=== PATIENT | female | born 1960 | race Caucasian/White ===

== ENCOUNTER 2017-01-19 10:04 | Day surgery (SDC) | payer OTHER ==
[2017-01-19] MEDS ORDERED: diphenhydrAMINE 25 MG CAP PO ONE ×2 (10:08→10:35)
[2017-01-19] MEDS ORDERED: ASPIRIN EC 325 MG TAB PO ONE ×2 (10:08→10:36)
[2017-01-19] MEDS ORDERED: FAMOTIDINE 20 MG TAB PO ONE (10:08)
[2017-01-19] MEDS ORDERED: DIAZEPAM 5 MG TAB PO ONE (10:08)
[2017-01-19] MEDS ORDERED: NS 1,000 ML IV ONE (10:08)
--- NOTE | 2017-01-19 10:34 | CPEKG ---
Heart Rate: 73 RR Interval: 822 P-R Interval: 128 QRSD Interval: 96 QT Interval: 400 QTC Interval: 441 P Leland: 67 QRS Leland: 75 T Wave Leland: 15 EKG Severity - NORMAL ECG - EKG Impression: SINUS RHYTHM Electronically Signed By: Zain Fitzpatrick 20-Jan-2017 13:13:09
[2017-01-19] MEDS ORDERED: DIAZEPAM 5 MG TAB ONE (10:36)
[2017-01-19] MEDS ORDERED: FAMOTIDINE 20 MG TAB ONE (10:36)
[2017-01-19 10:49] LABS: % IMMATURE GRANULYOCYTES 0.2 % (0.0-1.1); ABSOLUTE IMMATURE GRANULOCYTES 0.01 10^3/uL (0.00-0.10); ADD DIFF? NO; ADD MORPH? NO; ADD SCAN? NO; ATYPICAL LYMPHOCYTE FLAG 0 (0-99); FRAGMENT RBC FLAG 0 (0-99); HEMATOCRIT 40.4 % (38.0-47.0); HEMOGLOBIN 14.1 g/dL (12.6-16.3); LEFT SHIFT FLG 0 (0-99); LIPEMIA HEMOLYSIS FLAG 90 (0-99); MEAN CELL HEMOGLOBIN 31.1 pg (27.9-34.1); MEAN CELL HEMOGLOBIN CONCENTR. 34.9 g/dL (32.4-36.7); MEAN PLATELET VOLUME 9.6 fL (8.7-11.7); PLATELET CLUMPS FLAG 10 (0-99); PLATELET COUNT 193 10^3/uL (150-400); RED BLOOD CELL COUNT 4.54 10^6/uL (4.18-5.33); RED CELL DISTRIBUTION WIDTH 12.5 % (11.5-15.2)
[2017-01-19 10:58] LABS: INR 1.04 (0.83-1.16); PROTIME(PATIENT) 13.5 SEC (12.0-15.0)
[2017-01-19 11:09] LABS: ANION GAP 11 mEq/L (8-16); CALCIUM 9.5 mg/dL (8.5-10.4); CARBON DIOXIDE 26 mEq/l (22-31); CHLORIDE 106 mEq/L (97-110); CHOLESTEROL 127 mg/dL (140-220); CHOLESTEROL/HDL RATIO 1.87 RATIO (1.00-4.44); CREATININE 0.7 mg/dL (0.6-1.0); GLOMERULAR FILTRATION RATE > 60; GLUCOSE 89 mg/dL (70-100); HIGH DENSITY LIPOPROTEIN 68 mg/dL (40-85); LDL/HDL RATIO 0.65 RATIO (1.00-3.22); LOW DENSITY LIPOPROTEIN 44 mg/dL (80-100); MAGNESIUM 1.8 mg/dL (1.6-2.3); NON-HIGH DENSITY LIPOPROTEIN 59 mg/dL (90-129); POTASSIUM 3.7 mEq/L (3.5-5.2); SODIUM 143 mEq/L (134-144); TRIGLYCERIDE 75 mg/dL (35-135); VERY LOW DENSITY LIPOPROTEINS 15 mg/dL (8-25)
[2017-01-19] MEDS ORDERED: LIDOCAINE 1% 300 MG/30 ML SDV ONE (13:05)
[2017-01-19] MEDS ORDERED: MIDAZOLAM 2 MG/2 ML VIAL ONE (13:05)
[2017-01-19] MEDS ORDERED: fentaNYL 100 MCG/2 ML INJ ONE ×2 (13:05→13:51)
[2017-01-19] MEDS ORDERED: IOPAMIDOL (ISOVUE-370) 150 ML BTL IV ONE (13:05)
--- NOTE | 2017-01-19 13:38 | PDPROPOC ---
Sedation Plan of Care Sedation Plan of Care: vital signs stable, mental status noted, patient educated of risks, benefits, alternatives, patient can tolerate sedation ASA Classification: ASA 2 Planned drugs: fentanyl, midazolam Mallampati Score: Class 2 Mallampati Reference Image: Patient passed 3-3-2 rule?: Yes
--- NOTE | 2017-01-19 13:40 | PDGENHP ---
History & Physical Chief Complaint: DO History of Present Illness: 56 year old female with complaints of means and abnormal exercise nuclear stress test with 1.[address] depression and anterior ischemia. Pertinent Past, Social, Family History: HTN, Hyperlipidemia Relevant Physical Exam: Awake, alert appropriate
[2017-01-19] MEDS ORDERED: HYDROCODONE/APAP 5/325 TAB PO PRN (14:25)
[2017-01-19] MEDS ORDERED: NITROGLYCERIN 0.4 MG BTL SL PRN (14:25)
[2017-01-19] MEDS ORDERED: OXYCODONE/APAP 5/325 TAB PO PRN (14:25)
[2017-01-19] MEDS ORDERED: ONDANSETRON 4 MG/2 ML VIAL IVP PRN (14:25)
[2017-01-19] MEDS ORDERED: ATROPINE SULFATE 1 MG/10 ML SYR IVP PRN (14:25)
--- NOTE | 2017-01-19 19:46 | CPIP ---
[f rep st] INVASIVE CARDIAC PROCEDURE DATE OF PROCEDURE: 01/19/2017 REPORT TITLE: Cardiac catheterization. BODY AFTER REPORT TITLE: PROCEDURE PERFORMED: Diagnostic left heart catheterization. INDICATION FOR PROCEDURE: Symptoms of dyspnea on exertion coupled with high-risk findings on nuclear stress test including symptomatic dyspnea coupled with positive ECG changes and evidence of anterior wall ischemia. PROCEDURE: After informed consent was obtained, patient was taken to the cardiac catheterization lab where she was prepped and draped in sterile fashion. Using 1% lidocaine, the right groin was anesth etized. Using modified Seldinger technique, 6-Cambodian catheter was placed in the right common femoral artery without complications. JL4 catheter initially was used to attempt to cannulate the left main unsuccessfully. This was exchanged over a guidewire for a JL4-5. The JL4 catheter was used to micha ulate left main coronary artery. Images were obtained in multiple projections of the left coronary a natomy. JL4-5 catheter was exchanged over a guidewire for a JR4 catheter. JR4 catheter was used to cannulate the right coronary artery. Images of the right coronary artery were obtained. The JR4 cat heter was exchanged over a guidewire for angled pigtail catheter. Angled pigtail catheter was used t o cross the aortic valve. Left ventriculogram was performed. LVEDP was assessed, and an 8 aortic va lve gradient was assessed on pull-back. FINDINGS: 1. Left main is small and promptly bifurcates into left anterior descending and left circumflex [place] artery. There is no evidence of coronary disease within the left main. 2. Left anterior descending artery wraps around the LV apex. There is no evidence of coronary arter y disease within the left anterior descending artery or its branch vessels. 3. The left circumflex artery is a large dominant-caliber vessel with no evidence of coronary artery disease. Right coronary artery is a small vessel nondominant, that is borderline sub-2 mm vessel. Single shot was obtained of this vessel secondary to onset of hypotension with cannulation of the rig ht coronary artery. There is no evidence of coronary disease in the right coronary artery. HEMODYNAMICS: LVEDP 20/7 mmHg. Aortic valve gradient 5 mmHg. LVEF 60% to 65%. CONCLUSION: 1. Normal coronary arteries. 2. Mildly elevated LVEDP at 27 mmHg. RECOMMENDATIONS: Will focus on adequate blood pressure control and as well as lipids. /[id number]/MODL
== END 2017-01-19 18:16 | disposition home or self-care (01) ==
LOC: FCATH 10:04
PROVIDERS: ATTEND Internal Medicine Cardiovascular Disease
PROC: B2111ZZ Fluoroscopy of Multiple Coronary Arteries using Low Osmolar Contrast (ICD-10-PCS; principal; 2017-01-19)
PROC: 4A023N7 Measurement of Cardiac Sampling and Pressure, Left Heart, Percutaneous Approach (ICD-10-PCS; principal; 2017-01-19)
PROC: B2161ZZ Fluoroscopy of Right and Left Heart using Low Osmolar Contrast (ICD-10-PCS; principal; 2017-01-19)
DX: R94.39 Abnormal result of other cardiovascular function study (principal); R06.09 Other forms of dyspnea; I10 Essential (primary) hypertension; E78.5 Hyperlipidemia, unspecified
CPT/HCPCS: C1760; J1644; J2250; J3010; Q9967

== ENCOUNTER → 2017-10-28 | Outpatient (CLI) | payer OTHER | LOC: BMCIMAGING 12:37 | PROVIDERS: ATTEND Internal Medicine | DX: R06.02 Shortness of breath (principal) ==

== ENCOUNTER → 2018-05-26 | Outpatient (CLI) | payer OTHER | LOC: BMCIMAGING 08:20 | PROVIDERS: ATTEND Nurse Practitioner Adult Health | DX: M25.561 Pain in right knee (principal); M25.562 Pain in left knee; M17.0 Bilateral primary osteoarthritis of knee ==